=== PATIENT | female | born 1930 | race African-American/Black ===

== ENCOUNTER 2019-11-19 04:31 | Emergency (ER) | payer OTHER ==
--- NOTE | 2019-11-19 04:45 | PDOC ---
History of Present Illness - General Stated Complaint: FALL Time Seen by Provider: 11/19/19 04:45 - History of Present Illness Initial Comments: HPI: 89yo F with PMH of breast CA, alzheimer's, htn, asthma, falls, sent by [facility] for evaluation after a mechanical fall. Per [place], patient got out of bed without assistance and fell. The patient hit her head, but without witness loss of consciousness. She sustained a laceration on her right eyebrow. Unknown tetanus status. Patient is without acute complaints. Not on anticoagulants. History limited as patient has dementia. ROS: unable to complete (patient with dementia) PE: General: Awake, alert, and oriented x 1 (can state name, but not place or time) , in no acute distress Head: 2cm linear laceration to right eyebrow, hemostatic; otherwise atraumatic Eyes: EOMI, sclera anicteric ENT: Moist mucus membranes Neck: Normal ROM, supple Lungs: Lungs clear, Normal breath sounds Cardio: Regular rhythm, S1 and S2 present Abdomen: Soft, nontender Extremities: Normal range of motion, Distal pulses present SKIN: Warm, Dry, normal turgor Neurologic: Cranial nerves II through XII grossly intact. Normal speech ED Course/MDM: DDX including but not limited to mechanical fall, laceration, syncope History consistent with mechanical fall CT head/cspine Laceration will require repair Tetanus prophylaxis Per [facility] paperwork: "deep cut to right eyebrow" res got oob unassisted and fell. sustained deep cut on right eyebrow res is alerg and responsive, has periods of confusion requires assist with all ADL's including transfer and toileting uses for mobility. c/o pain to injured area, tylenol 650mg given and effective name of family/health care agent notified: liliane zak 11/19/19 3:05am PCP: Dr. Saez Alzheimer's disease h/o falls BP140/82, HR 62, RR 20, T 97.6, Sat 98% 11/19/19 04:45 Lceration repaired with three sutures. Please see procedure note Pending CT reports 11/19/19 06:16 CT reports negative for acute pathology, as read by Imaging tong setter: "FINDINGS: Cervical spine: There is slight loss of height of the C6 and C7 vertebral bodies of indeterminate age. No other cervical fracture or malalignment. Sclerotic focus T10 vertebral body has the appearance of a bone island. Recommend follow-up to confirm stability. Head: Involutional changes. Chronic microvascular changes. No acute intracranial abnormality. No hemorrhage. Osseous structures are intact. One or more of the following dose reduction techniques were used: automated exposure control, adjustment of the mA and/or kV according to patient size, use of iterative reconstructive technique. THIS DOCUMENT HAS BEEN ELECTRONICALLY SIGNED Tapan Rodriguez MD 11/19/2019 06:26 EST" Patient to be discharged Call to [facility] regarding patient's discharge, Discussed case with Miss Santos Pending transportation back to [place] Return precautions Stable for discharge 11/19/19 06:35 Past History - Past Medical History Allergies/Adverse Reactions: Allergies Allergy/AdvReac Type Severity Reaction Status Date / Time No Known Allergies Allergy Verified 11/19/19 04:54 Procedures - Laceration/Wound Repair Right Eye Wound Length: to 2.5 cm Wound Explored: clean Wound's Depth, Shape: linear Irrigated w/ Saline: Yes Anesthesia: 1% Lidocaine Wound Repaired With: Sutures Suture Size/Type: 5:0 (monocryl) Number of Sutures: 3 Sterile Dressing Applied: Yes Discharge - Discharge Information Problems reviewed: Yes Clinical Impression/Diagnosis: Fall Qualifiers: Encounter type: initial encounter Qualified Code(s): W19.XXXA - Unspecified fall, initial encounter Eyebrow laceration Qualifiers: Encounter type: initial encounter Laterality: right Qualified Code(s): S01.111A - Laceration without foreign body of right eyelid and periocular area, initial encounter Condition: Improved Disposition: HOME - Follow up/Referral Referrals: Ruben Saez [Primary Care Provider] - - Patient Discharge Instructions Patient Printed Discharge Instructions: DI for Laceration Repair Additional Instructions: You came into the emergency department after a fall. We performed a CT scan of your head and neck which did not indicate acute pathology. Follow-up with your primary care doctor this week to discuss this ED visit and to ensure you are progressing appropriately. Call and make an appointment. Your workup is not complete until you do so. Your cut was cleaned and you received three stitches. Keep the area clean. Apply an antibiotic ointment like bacitracin or mupirocin to the area twice daily. Follow up with your doctor or return to the Emergency Department in 5-7days for re-evaluation and suture removal. RETURN to the ED sooner if you experience: redness or hardness around the wound , pain or tenderness, a red streak, yellow or green discharge oozing from the wound, fever or chills. You got a tetanus shot called Boostrix today. Keep note of this date 11/19/19. Immediate medical attention is required if you experience: severe headache, fever and chills, nausea and vomiting, lightheadedness, inability to breathe or very rapid breathing, rapid irregular heartbeat, chest pain, or trouble breathing. If you think you are having an emergency, call for emergency medical services or present to the emergency department right away - Post Discharge Activity
--- NOTE | 2019-11-19 04:52 | PDOC ---
Attending Attestation - Resident Resident Name: Dawna Patel - ED Attending Attestation I have performed the following: I have examined & evaluated the patient, The case was reviewed & discussed with the resident - HPI HPI: 11/19/19 05:51 see resident hpi - Physicial Exam PE: 11/19/19 05:52 agree with resident exam - Medical Decision Making 11/19/19 06:46 89-year-old female status post mechanical fall with laceration to the right eyebrow area CT scans of the head and cervical spine show no acute traumatic injury Laceration repaired by emergency department staff, patient to be DC'd back to facility
[2019-11-19 04:54] VITALS: BMI 24.0
[2019-11-19] MEDS ORDERED: DIPHTH,PERTUSS(ACELL),TET 0.5 ML DISP.SYRIN IM ONE ×3 (05:21→06:22)
[2019-11-19 08:21] VITALS: BP 130/78; PULSE 78; TEMP 98
== END 2019-11-19 08:21 ==
LOC: JER 04:31
PROC: 3E0234Z Introduction of Serum, Toxoid and Vaccine into Muscle, Percutaneous Approach (ICD-10-PCS; principal; 2019-11-19)
PROC: 0JQ10ZZ Repair Face Subcutaneous Tissue and Fascia, Open Approach (ICD-10-PCS; 2019-11-19)
DX: S01.111A Laceration without foreign body of right eyelid and periocular area, initial encounter (principal); W18.39XA Other fall on same level, initial encounter; Z91.81 History of falling; Y93.89 Activity, other specified; Y92.122 Bedroom in nursing home as the place of occurrence of the external cause; Y99.8 Other external cause status; I10 Essential (primary) hypertension; J45.909 Unspecified asthma, uncomplicated; G30.9 Alzheimer's disease, unspecified; F02.80 Dementia in other diseases classified elsewhere, unspecified severity, without behavioral disturbance, psychotic disturbance, mood disturbance, and anxiety; Z85.3 Personal history of malignant neoplasm of breast
CPT/HCPCS: 70450-TC; 72125-TC; 90715; 99282-25